=== PATIENT | female | born 1975 | race American Indian/Alaskan Native ===

== ENCOUNTER 2017-04-04 14:04 | Emergency (ER) | payer MEDICAID, OTHER ==
[2017-04-04 14:24] VITALS: BP 168/111
[2017-04-04 14:36] LABS: Basophils % (Auto) 0.7 % (0.0-1.8); Eosinophils % (Auto) 0.6 % (0.0-4.3); Mean Corpuscular HGB Conc 30 % (30-34); Platelet Count 435 K/mm3 (140-440); Red Blood Count 5.02 M/mm3 (3.65-5.03)
[2017-04-04 14:37] LABS: Hematocrit 32.1 % (30.3-42.9); Hemoglobin 9.6 gm/dl (10.1-14.3); Mean Corpuscular Hemoglobin 19 pg (28-32); Mean Corpuscular Volume 64 fl (79-97); Red Cell Distribution Width 21.4 % (13.2-15.2)
[2017-04-04 15:02] LABS: Anion Gap 20 mmol/L; Blood Urea Nitrogen 12 mg/dL (7-17); Calcium 9.4 mg/dL (8.4-10.2); Carbon Dioxide 22 mmol/L (22-30); Glucose 98 mg/dL (65-100); Potassium 3.7 mmol/L (3.6-5.0); Sodium 138 mmol/L (137-145)
== END 2017-04-04 21:30 | disposition left against medical advice (07) ==
LOC: ED 14:04
DX: R07.89 Other chest pain (principal); R20.0 Anesthesia of skin; R11.0 Nausea; I10 Essential (primary) hypertension; Z91.018 Allergy to other foods; Z53.21 Procedure and treatment not carried out due to patient leaving prior to being seen by health care provider
CPT/HCPCS: 36415; 80048; 84484; 84703; 85025; 93005; 93010

== ENCOUNTER 2017-05-20 08:11 | Outpatient (CLI) | payer OTHER ==
--- NOTE | 2017-05-20 10:27 | Ultrasound Report ---
ULTRASOUND THYROID SCAN HISTORY: Goiter FINDINGS: The thyroid gland is mildly enlarged, heterogeneous and nodular consistent with goiter. There are numerous bilateral nodules. The largest nodule on the right side measures 2.6 x 1.6 cm near the inferior pole. The largest nodule on the left side measures 1.6 x 2.0 cm near mid pole. The largest left lobe nodule demonstrates mild cystic change. No calcifications are appreciated. IMPRESSION: Enlarged and heterogeneous thyroid gland consistent with a multinodular goiter. Consider surveillance.
== END 2017-05-20 08:12 | disposition home or self-care (01) ==
LOC: US 08:11
PROVIDERS: ATTEND Internal Medicine
DX: E04.2 Nontoxic multinodular goiter (principal); I10 Essential (primary) hypertension
CPT/HCPCS: 76536